=== PATIENT | male | born 1985 | race Caucasian/White ===

== ENCOUNTER 2019-02-27 13:02 | Emergency (ER) | payer OTHER ==
[2019-02-27 13:36] LABS: Absolute Lymphocytes (CBC) 2.6 K/uL (0.7-4.9); Absolute Monocytes 1.1 K/uL (0.1-1.3); Absolute Neutrophil 8.2 K/uL (1.8-8.0); Basophils % 0.5 % (0-1.3); Eosinophils % 1.6 % (0-4.4); Hematocrit 41.4 % (39.6-49.0); Lymphocytes % 21.2 % (15.3-44.8); MPV 10.3 fL (7.6-11.3); Monocytes % 9.5 % (3.3-12.3); RBC Red Blood Cell Count 4.49 M/uL (4.33-5.43)
[2019-02-27 13:58] LABS: ALT/SGPT 29 U/L (12-78); AST/SGOT 19 U/L (15-37); Albumin 3.9 g/dL (3.4-5.0); Alkaline Phosphatase 47 U/L (45-117); BUN Blood Urea Nitrogen 13 mg/dL (7-18); Bicarbonate 27 mmol/L (21-32); Bilirubin Direct 0.1 mg/dL (0-0.2); Bilirubin Total 0.6 mg/dL (0.2-1.0); Glucose Level 119 mg/dL (74-106); NT PRO-BNP 34 pg/mL (<125); Potassium 3.9 mmol/L (3.5-5.1); Protein, Total 6.9 g/dL (6.4-8.2); Sodium Level 141 mmol/L (136-145); Troponin (Emerg Dept Use Only) < 0.02 ng/mL (0.0-0.045)
--- NOTE | 2019-02-27 14:02 | RAD REPORT ---
EXAM DESCRIPTION: CT - Head C Spine Mpr Wo Con - 02/27/2019 1:45 pm CLINICAL HISTORY: Syncope. Head and neck injury status post fall. Head and neck pain COMPARISON: None. TECHNIQUE: Computed axial tomography of the head and cervical spine was obtained. Sagittal and coronal reconstruction was performed. All CT scans are performed using dose optimization technique as appropriate and may include automated exposure control or mA/KV adjustment according to patient size. FINDINGS: An intracranial bleed is not seen. The ventricles are normal in caliber. An extra-axial fl uid collection is not noted.Fluid within the visualized sinuses and mastoids is not seen A cervical fracture is not visualized. No dislocation is noted. Minimal posterior subluxation C5 on C 6. Spondylosis at this level results in mild central spinal stenosis. Mild to moderate narrowing of t he neural foramina bilaterally IMPRESSION: No acute intracranial abnormality is seen. A cervical fracture is not visualized. If the patient continues to have symptoms to suggest intracra nial /spinal cord/ ligamentous pathology then MRI would be recommended
--- NOTE | 2019-02-27 14:09 | RAD REPORT ---
EXAM DESCRIPTION: CT - Facial Bones W/ Mpr - 02/27/2019 1:45 pm CLINICAL HISTORY: Facial injury status post fall. Facial pain COMPARISON: none TECHNIQUE: Computed axial tomography of the face was obtained. Coronal and sagittal reconstruction w as performed. All CT scans are performed using dose optimization technique as appropriate and may include automated exposure control or mA/KV adjustment according to patient size. FINDINGS: A fracture is not seen. A TMJ dislocation is not noted. The globes are intact. Fluid within the sinuses is not seen. IMPRESSION: Negative for a facial fracture.
--- NOTE | 2019-02-27 14:12 | RAD REPORT ---
EXAM DESCRIPTION: [place] Single View02/27/2019 1:37 pm CLINICAL HISTORY: Chest pain COMPARISON: none FINDINGS: The lungs appear clear of acute infiltrate. The heart is normal size IMPRESSION: No acute abnormalities displayed
--- NOTE | 2019-02-27 14:46 | EDPHYS ---
Physician Documentation [facility] Name: Chase Serrano Age: 34 yrs Sex: Male : 1985 Arrival Date: 02/27/2019 Time: 13:04 Bed 20 Private MD: ED Physician Maksim Newsome HPI: 02/27 13:15 This 34 yrs old Male presents to ER via EMS with complaints of Near Syncope. jmm 13:15 The patient has experienced near-syncope. Onset: The symptoms/episode began/occurred jmm acutely, just prior to arrival. This is a 34 year old male with a history of depression that presents to the ED after a syncopal episode which occurred just prior to arrival. Patient that he became dizzy and sweaty after getting up from crouching down. Patient states that he attempted to catch himself but still fell, face forward unto the concrete. Patient denies chest pain or shortness of breath but states he had a rapid heart beat as a child which is currently does not take medication for. . Historical: - Allergies: 13:21 No Known Allergies; aj1 - Home Meds: 13:07 Bupropion Oral [Active]; sg - PMHx: 13:21 rapid heart beat when he was a baby; aj1 - Immunization history:: Flu vaccine is not up to date. - Social history:: Smoking status: Patient uses tobacco products, denies chronic smoking, but will smoke occasionally. - Ebola Screening: : Patient denies travel to an Ebola-affected area in the 21 days before illness onset. ROS: 13:15 Constitutional: Negative for fever, chills, and weight loss, Cardiovascular: Negative jmm for chest pain, palpitations, and edema, Respiratory: Negative for shortness of breath, cough, wheezing, and pleuritic chest pain, Abdomen/GI: Negative for abdominal pain, nausea, vomiting, diarrhea, and constipation. 13:15 Neuro: Positive for near syncope. 13:15 All other systems are negative. Exam: 13:15 Constitutional: This is a well developed, well nourished patient who is awake, alert, jmm and in no acute distress. 13:15 ENT: Moist Mucus Membranes Neck: Trachea midline, Supple Chest/axilla: Normal chest wall appearance and motion. Cardiovascular: Regular rate and rhythm. No edema appreciated 13:15 Abdomen/GI: Non distended, soft Back: Normal ROM 13:15 Head/face: abrasions noted to the nose and forehead and right cheek. . 13:15 Cardiovascular: Rate: normal, Rhythm: regular. 13:15 Respiratory: the patient does not display signs of respiratory distress, Respirations: normal, Breath sounds: are clear throughout. 13:15 Skin: multiple abrasions noted to the face. 13:15 Neuro: Orientation: is normal, Mentation: is normal, Memory: is normal. 13:15 Psych: Behavior/mood is pleasant, cooperative. 14:17 ECG was reviewed by the Attending Physician. [facility] Vital Signs: 13:16 BP 150 / 87; Pulse 78; Resp 12; Temp 98.5; Pulse Ox 100% on R/A; Weight 81.65 kg (R); 1 Height 6 ft. 0 in. (182.88 cm) (R); 14:29 BP 112 / 65; Pulse 64; Resp 18; Pulse Ox 100% on R/A; aj1 15:40 BP 118 / 73; Pulse 67; Resp 18; Pulse Ox 99% on R/A; aj1 16:49 BP 116 / 63; Pulse 67; Resp 18; Pulse Ox 100% on R/A; aj1 13:16 Body Mass Index 24.41 (81.65 kg, 182.88 cm) [facility] MDM: 13:15 Patient medically screened. [facility] 14:37 Data reviewed: vital signs, nurses notes. Counseling: I had a detailed discussion with [facility] the patient and/or guardian regarding: the historical points, exam findings, and any diagnostic results supporting the discharge/admit diagnosis, lab results, radiology results, the need for outpatient follow up, to return to the emergency department if symptoms worsen or persist or if there are any questions or concerns that arise at home. 14:41 ED course: Patient states he has not been keeping well hydrated while at work [facility] yesterday. Symptoms appear consistent with vagal syncope. Patient is alert and non toxic in appearance in the ED. Patient has no complaints of SOB, ekg NSR, H/H wnl, Karimi Franciso Syncope rules considers the patient low risk. Patient is advised to follow up with cardiology for further evaluation and is otherwise given strict return precautions. . 02/27 13:16 Order name: Basic Metabolic Panel; Complete Time: 14:15 [facility] 02/27 13:16 Order name: CBC with Diff; Complete Time: 14:15 [facility] 02/27 13:16 Order name: LFT's; Complete Time: 14:15 [facility] 02/27 13:16 Order name: Magnesium; Complete Time: 14:15 02/27 13:16 Order name: NT PRO-BNP; Complete Time: 14:15 [facility] 02/27 13:16 Order name: PT-INR; Complete Time: 14: [facility] 02/27 13:16 Order name: Troponin (emerg Dept Use Only); Complete Time: 14:15 [facility] 02/27 13:16 Order name: XRAY Chest (1 view); Complete Time: 14:15 [facility] 02/27 13:16 Order name: EKG; Complete Time: 13:16 [facility] 02/27 13:16 Order name: Cardiac monitoring; Complete Time: 13: [facility] 02/27 13:16 Order name: EKG - Nurse/Tech; Complete Time: 13:27 [facility] 02/27 13:16 Order name: CT Facial Bones W/O Con; Complete Time: 14: 02/27 13:16 Order name: CT Head C Spine; Complete Time: 14:15 02/27 13:16 Order name: IV Saline Lock; Complete Time: 13: [facility] 02/27 13:16 Order name: Labs collected and sent; Complete Time: 13: [facility] 02/27 13:16 Order name: O2 Per Protocol; Complete Time: 13: [facility] 02/27 13:16 Order name: O2 Sat Monitoring; Complete Time: 13:22 jmm EC:17 Rate is 62 beats/min. Rhythm is regular. QRS [place] is Normal. OR interval is normal. QRS jmm interval is normal. QT interval is normal. No Q waves. T waves are Normal. No ST changes noted. Administered Medications: 15:19 Drug: NS 0.9% 1000 ml Route: IV; Rate: 1 bolus; Site: left antecubital; aj1 16:50 Follow up: IV Status: Completed infusion; IV Intake: 1000ml aj1 Disposition: 22:13 Co-signature as Attending Physician, Maksim Newsome MD Available for consultation at [facility] all times . Disposition: 02/27/19 14:45 Discharged to Home. Impression: Syncope and collapse, Facial Abrasion. - Condition is Stable. - Discharge Instructions: Syncope. - Medication Reconciliation Form, Thank You Letter, Antibiotic Education, Prescription Opioid Use form. - Follow up: Valente Maher MD; When: 2 - 3 days; Reason: Recheck today's complaints, Continuance of care, Re-evaluation by your physician. Follow up: Tae Mckeon MD; When: 2 - 3 days; Reason: Recheck today's complaints, Continuance of care, Re-evaluation by your physician. Signatures: Dispatcher [employer] EDMS Candy Yates RN RN aj1 Michael Arango RN RN sg Jas Vega PA PA jmm Singer, Phillip, MD MD ps1 Corrections: (The following items were deleted from the chart) 16:50 14:45 02/27/2019 14:45 Discharged to Home. Impression: Syncope and collapse; Facial aj1 Abrasion. Condition is Stable. Forms are Medication Reconciliation Form, Thank You Letter, Antibiotic Education, Prescription Opioid Use. Follow up: Valente Maher; When: 2 - 3 days; Reason: Recheck today's complaints, Continuance of care, Re-evaluation by your physician. Follow up: Tae Mckeon; When: 2 - 3 days; Reason: Recheck today's complaints, Continuance of care, Re-evaluation by your physician. [facility]
--- NOTE | 2019-02-27 14:46 | ER ---
Nurse's Notes [facility] Name: Chase Serrano Age: 34 yrs Sex: Male : 1985 Arrival Date: 02/27/2019 Time: 13:04 Bed 20 Private MD: Diagnosis: Syncope and collapse;Facial Abrasion Presentation: 02/27 13:04 Presenting complaint: EMS states: Was out on the patio with family members when he sg became weak and dizzy, pt dad assisted him inside the house when he had a syncopal episode and fell to the ground, abrasions sustained to the right side of forehead and right cheek. Transition of care: patient was not received from another setting of care. Onset of symptoms was February 27, 2019. Risk Assessment: Do you want to hurt yourself or someone else? Patient reports no desire to harm self or others. Initial Sepsis Screen: Does the patient meet any 2 criteria? No. Patient's initial sepsis screen is negative. Does the patient have a suspected source of infection? No. Patient's initial sepsis screen is negative. Care prior to arrival: IV initiated. 18 GA, in the left antecubital area, Glucose check: 107. 13:04 Method Of Arrival: EMS: [facility] sg 13:04 Acuity: LORIN 3 sg Triage Assessment: 13:16 General: Appears in no apparent distress. uncomfortable, Behavior is calm, cooperative, aj1 appropriate for age. Pain: Complains of pain in face and back. Historical: - Allergies: 13:21 No Known Allergies; aj1 - Home Meds: 13:07 Bupropion Oral [Active]; sg - PMHx: 13:21 rapid heart beat when he was a baby; aj1 - Immunization history:: Flu vaccine is not up to date. - Social history:: Smoking status: Patient uses tobacco products, denies chronic smoking, but will smoke occasionally. - Ebola Screening: : Patient denies travel to an Ebola-affected area in the 21 days before illness onset. Screenin:18 Abuse screen: Denies threats or abuse. Denies injuries from another. Nutritional aj1 screening: No deficits noted. Tuberculosis screening: No symptoms or risk factors identified. 16:49 Fall Risk None identified. aj1 Assessment: 13:18 General: Appears in no apparent distress. comfortable, Behavior is calm, cooperative, aj1 appropriate for age. Pain: Complains of pain in face and back Pain does not radiate. Pain currently is 5 out of 10 on a pain scale. Neuro: Level of Consciousness is awake, alert, obeys commands, Oriented to person, place, time, situation, Moves all extremities. Full function Speech is normal, Facial symmetry appears normal, Reports a syncopal episode. Cardiovascular: Denies chest pain, palpitations, shortness of breath, Patient's skin is warm and dry. Rhythm is sinus rhythm. Cardiovascular: Reports He started to feel dizzy and the feeling wasn't passing so he went down to his knee, then he started to feel a cold sweat and he passed out, hitting his face on the ground. Respiratory: Airway is patent Respiratory effort is even, unlabored, Respiratory pattern is regular, symmetrical. GI: No signs and/or symptoms were reported involving the gastrointestinal system. : No signs and/or symptoms were reported regarding the genitourinary system. EENT: No signs and/or symptoms were reported regarding the EENT system. Derm: Skin is pink, warm \T\ dry. normal. Musculoskeletal: Circulation, motion, and sensation intact. Injury Description: Abrasion sustained to forehead and nose. 14:16 Reassessment: Patient appears in no apparent distress at this time. No changes from aj1 previously documented assessment. Patient and/or family updated on plan of care and expected duration. Pain level reassessed. Patient is alert, oriented x 3, equal unlabored respirations, skin warm/dry/pink. 15:39 Reassessment: Patient discharge pending completion of IV fluids. aj1 16:30 Reassessment: Patient appears in no apparent distress at this time. No changes from aj1 previously documented assessment. Patient and/or family updated on plan of care and expected duration. Pain level reassessed. Patient is alert, oriented x 3, equal unlabored respirations, skin warm/dry/pink. Vital Signs: 13:16 BP 150 / 87; Pulse 78; Resp 12; Temp 98.5; Pulse Ox 100% on R/A; Weight 81.65 kg (R); aj1 Height 6 ft. 0 in. (182.88 cm) (R); 14:29 BP 112 / 65; Pulse 64; Resp 18; Pulse Ox 100% on R/A; aj1 15:40 BP 118 / 73; Pulse 67; Resp 18; Pulse Ox 99% on R/A; aj1 16:49 BP 116 / 63; Pulse 67; Resp 18; Pulse Ox 100% on R/A; aj1 13:16 Body Mass Index 24.41 (81.65 kg, 182.88 cm) aj1 ED Course: 13:04 Patient arrived in ED. sg 13:05 Triage completed. sg 13:05 Arm band placed on. sg 13:07 Jas Vega PA is PHCP. [facility] 13:07 Maksim Newsome MD is Attending Physician. jm 13:16 Candy Yates, RN is Primary Nurse. aj1 13:18 Patient has correct armband on for positive identification. Bed in low position. Call aj1 light in reach. Side rails up X 1. cardiac monitor technician on. Pulse ox on. NIBP on. 13:18 No provider procedures requiring assistance completed. Maintain EMS IV. Dressing aj1 intact. Good blood return noted. Site clean \T\ dry. Gauge \T\ site: 18g left AC. 13:20 EKG done. aj1 13:22 Initial lab(s) drawn, by me, sent to lab. dh3 13:38 XRAY Chest (1 view) In Process Unspecified. EDMS 13:45 CT Facial Bones W/O Con In Process Unspecified. EDMS 13:45 CT Head C Spine In Process Unspecified. EDMS 13:45 CT completed. Patient tolerated procedure well. Patient moved back from CT. bq 14:45 Valente Maher MD is Referral Physician. jmm 14:45 Tae Mckeon MD is Referral Physician. jmm 16:49 IV discontinued, intact, bleeding controlled, No redness/swelling at site. Pressure aj1 dressing applied. Administered Medications: 15:19 Drug: NS 0.9% 1000 ml Route: IV; Rate: 1 bolus; Site: left antecubital; aj1 16:50 Follow up: IV Status: Completed infusion; IV Intake: 1000ml aj1 Intake: 16:50 IV: 1000ml; Total: 1000ml. aj1 Outcome: 14:45 Discharge ordered by . jmm 16:50 Discharged to home ambulatory. aj1 16:50 Condition: good 16:50 Discharge instructions given to patient, Instructed on discharge instructions, follow up and referral plans. Demonstrated understanding of instructions, follow-up care. 16:50 Patient left the ED. aj1 Signatures: Dispatcher [employer] Candy Herndon RN RN aj1 Michael Arango RN RN sg Mickail, Joel, PA PA jmm Quilty, Betty bq Herrera, Sofi [facility] Corrections: (The following items were deleted from the chart) 13:06 13:04 Care prior to arrival: None. alice jenkins
[2019-02-27] MEDS ORDERED: NA CHLORIDE 0.9% 1,000 ML ONE (15:14)
--- NOTE | 2019-02-28 06:08 | EKG ---
Test Date: 2019-02-27 Test Time: 13:25:51 Deckhand Engineer: LILY MEASUREMENT RESULTS: Intervals: Rate: 62 KS: 150 QRSD: 102 QT: 412 QTc: 418 [place]: P: 26 KS: 150 QRS: 68 T: 21 INTERPRETIVE STATEMENTS: Normal sinus rhythm Normal ECG Compared to ECG 01/11/1998 07:21:00 Sinus arrhythmia no longer present Electronically Signed On 02-28-19 06:08:05 CDT by Valente Maher
== END 2019-02-27 16:50 | disposition home or self-care (01) ==
LOC: ER 13:02
DX: R55 Syncope and collapse (principal); S00.81XA Abrasion of other part of head, initial encounter; W01.0XXA Fall on same level from slipping, tripping and stumbling without subsequent striking against object, initial encounter; F32.9 Major depressive disorder, single episode, unspecified; Z72.0 Tobacco use
CPT/HCPCS: 36415; 70450; 70486; 71045; 72125; 76377; 80048; 80076; 83735; 83880; 84484; 85025; 85610; 93005; 96360; 96361; 99285; J7030